=== PATIENT | male | born 1970 | race Hispanic/Latino ===

== ENCOUNTER 2017-11-15 16:27 | Emergency (ER) | payer OTHER ==
[~2017-11-15] VITALS: Ht 167.6 cm; Wt 86.2 kg
--- NOTE | 2017-11-15 17:05 | ED ANIMAL BITE/WOUND CHECK ---
History of Present Illness General Chief Complaint: Animal/Insect Bite Stated Complaint: DOG BITE Source: patient Exam Limitations: no limitations Vital Signs & Intake/Output Vital Signs & Intake/Output Vital Signs Date Time Temp Pulse Resp B/P B/P Pulse O2 O2 Flow FiO2 Mean Ox Delivery Rate 11/15 1628 97.6 140 18 132/78 97 Room Air Allergies Coded Allergies: No Known Allergies (11/15/17) Triage Note: BIBA FROM HOME, S/P DOG BITE "THERE WAS A STRAY PITBULL AND IT WENT AFTER MY DOGS". PT NOTED WITH LACERATIONS/DRESSINGS TO RIGHT INDEX FINGER AND LEFT ELBOW, ALSO NOTED WITH ?PUNCTURE WOUNDS TO RIGHT LOWER ABD, MULTIPLE ABRASIONS/SCRATCHES TO ARMS LEGS, LEFT SHOULDER AREAS. Triage Nurses Notes Reviewed? yes Onset: Abrupt Duration: hour(s): Timing: single episode today Injury Environment: home Is Injury an Animal Bite? Yes Animal Type: dog Context of Animal Attack: unprovoked attack Appearance of Animal: unknown Animal Immunization Status: unknown Observation/Capture: not captured Severity of Attack: bitten, scratched Severity: moderate HPI: 47yo male presents to ED complaining of dog bites from stray pitbull. Patient states that there was a pimple at his front door, his accidentally opened the door and the people ran side. Bupropion affecting the patient's small dog. The patient intervened it and scratched him in several locations including both arms and torso. Patient unsure of last tetanus vaccine. He denies head injury or loss of consciousness. (Sierra Renae) Reconcile Medications Amoxicillin/Potassium Clav (Augmentin 875-125 Tablet) 875 MG-125 MG TABLET 1 TAB PO BID dog bite Tramadol HCl 50 MG TABLET 1 TAB PO Q6P PRN PAIN (Fermin Gross DO) Past History Travel History Traveled to [place] past 21 day No Medical History Any Pertinent Medical History? none Neurological: NONE EENT: NONE Cardiovascular: NONE Respiratory: NONE Gastrointestinal: NONE Hepatic: NONE Renal: NONE Musculoskeletal: NONE Psychiatric: NONE Endocrine: NONE Blood Disorders: NONE Cancer(s): NONE MEDICAL SPECIALIST/Reproductive: NONE Surgical History Surgical History: non-contributory Psychosocial History What is your primary language Vincentian Tobacco Use: Never used ETOH Use: denies use Illicit Drug Use: denies illicit drug use Family History Hx Contributory? No (Sierra Renae) Review of Systems Review of Systems Constitutional: Reports: no symptoms. EENTM: Reports: no symptoms. Respiratory: Reports: no symptoms. Cardiovascular: Reports: no symptoms. GI: Reports: no symptoms. Genitourinary: Reports: no symptoms. Musculoskeletal: Reports: see HPI. Skin: Reports: see HPI. Neurological/Psychological: Reports: no symptoms. Hematologic/Endocrine: Reports: no symptoms. Immunologic/Allergic: Reports: no symptoms. All Other Systems: Reviewed and Negative (Sierra Renae) Physical Exam Physical Exam General Appearance: well developed/nourished, no apparent distress, alert, awake Head: atraumatic, normal appearance Eyes: Bilateral: normal appearance. Ears, Nose, Throat: hearing grossly normal Neck: normal inspection, supple, full range of motion Respiratory: no respiratory distress Back: normal inspection, normal range of motion Extremities: normal range of motion Neurologic/Psych: awake, alert, oriented x 3 Skin: 2 lacerations to right index finger 1.5cm and 1cm, 1cm left posterior elbow laceration abrasions to bilateral arms and hands, right torso (Sierra Renae) Progress Differential Diagnosis: laceration, abrasion, dog bite, rabies exposure Plan of Care: Current Medications Sig/Ramón Start time Last Medication Dose Stop Time Status Admin Ampicillin Sodium/ 3,000 MG ONCE ONE 11/15 1899 UNVr Sulbactam Sodium 11/15 1928 (Unasyn) Sodium Chloride 100 ML (Normal Saline 0.9%) Deep lacerations to right index finger and left elbow were approximated with sutures. All wounds were irrigated extensively with normal saline. Patient placed in finger splint to prevent breaking of stitches to right index finger. He was given rabies vaccines and rabies immunoglobulin. Tetanus status was also updated today. Given deep wounds to right index finger patient given referral to a hand specialist for further evaluation. He is also educated on signs and symptoms of skin infection. Patient given dose of IV Unasyn here in the emergency department. He was started on Augmentin to go home with. Patient will return for rabies schedule and suture removal. He will also return for symptoms of skin infection or tenosynovitis. The patient understands and agrees with plan of care. Diagnostic Imaging: Viewed by Me: Radiology Read. Discussed w/RAD: Radiology Read. Radiology Impression: PATIENT: CUENCA,VITALIY PRESENT AGE: 47 PATIENT ACCOUNT NO: [id number] : 69 LOCATION: [facility] ORDERING PHYSICIAN: Sierra CORRALES SERVICE DATE: 11/15/17 EXAM TYPE: RAD - XRY-ELBOW 3 OR MORE VIEWS, L; XRY-FINGERS, RIGHT; XRY-HAND, LEFT EXAMINATION: XR FINGER, RIGHT XR HAND, LEFT XR ELBOW, LEFT CLINICAL INFORMATION: Status post dog bite. COMPARISON: None. TECHNIQUE: 5 views of the left elbow were obtained. 3 views of the left hand were obtained. Single view of the right hand was performed along with 2 additional views of the 1st digit. FINDINGS: LEFT ELBOW: There is marked disruption of soft tissues posteriorly but no bony abnormality is present. No fractures are seen. No definite joint effusion is seen. LEFT HAND: No bone, joint or soft tissue abnormality is seen. RIGHT FINGERS: There is soft tissue swelling present but no underlying bony abnormality is seen. IMPRESSION: Soft tissue disruption behind the elbow and involving the 1st digit but no underlying bony abnormalities are seen. DICTATED BY: Dimitry Goodman MD DATE/TIME DICTATED:11/15/171757 AUTOMATIC LATHE SETTER: DORI DATE/TIME TRANSCRIBED:11/15/171757 CONFIDENTIAL, DO NOT COPY WITHOUT APPROPRIATE AUTHORIZATION. <Electronically signed in Other Vendor System> SIGNED BY: Dimitry Goodman MD 11/15/17 504 (Emma CORRALES,Sierra Austin) Departure Departure Disposition: HOME OR SELF CARE Condition: Stable Clinical Impression Primary Impression: Dog bite Qualifiers: Encounter type: initial encounter Qualified Code: W54.0XXA - Bitten by dog, initial encounter Secondary Impressions: Laceration Referrals: Sachin Manjarrez APRN (PCP/Family) Additional Instructions: Begin Augmentin as prescribed. Follow-up with hand specialist regarding your dog bites to your fingers. Rinsed the areas daily with soap and water and then Keep areas clean and dry throughout the day. No heavy scrubbing over stitches. Return in 7-10 days for removal of stitches. Return sooner if you develop any signs of infection including redness, swelling, increasing pain, warmth. Please note that there might be incidental findings in your evaluation that are unrelated to the current emergency department visit. Please notify your primary care doctor about this emergency department visit in order to obtain and review all of the testing performed so that these incidental findings can be monitored as needed. If you had an x-ray performed, please understand that some fractures may not be seen on the initial set of x-rays. If your symptoms persist you might need a repeat set of x-rays to check for such a fracture. If you had a laceration evaluated, please understand that foreign bodies such as glass or wood may not be visible to the naked eye or on plain x-rays. If the wound becomes red, swollen, increasingly more painful or if there is any drainage from the wound, please have it reevaluated by a physician for the possibility of a retained foreign body. If you're unable to follow up as outlined in the discharge instructions please return to the emergency department. Thank you for choosing the [facility] Emergency Department for your care. It was a pleasure to serve you today. Departure Forms: Customer Survey General Discharge Information Prescriptions: Current Visit Scripts Amoxicillin/Potassium Clav (Augmentin 875-125 Tablet) 1 TAB PO BID #20 TAB (Sierra Renae) PA/OPTOMETRIC TECHNOLOGIST Co-Sign Statement Statement: ED Attending supervision documentation- [] I saw and evaluated the patient. I have also reviewed all the pertinent lab results and diagnostic results. I agree with the findings and the plan of care as documented in the PA's/OPTOMETRIC TECHNOLOGIST's documentation. [x] I have reviewed the ED Record and agree with the PA's/OPTOMETRIC TECHNOLOGIST's documentation. [] Additions or exceptions (if any) to the PAs/OPTOMETRIC TECHNOLOGIST's note and plan are summarized below: [] (Fermin Gross DO) Procedures Laceration/Wound Repair Laceration/Wound Repair: Wound Location: right index finger, left elbow Wound's Depth, Shape: linear Wound Length (cm): 1.5 Wound Explored: irrigated extensively Irrigated w/ Saline (ccs): 1000 Betadine Prep? Yes Anesthesia: digit block, 1% lidocaine Volume Anesthetic (ccs): 6 Wound Debrided: minimal Wound Repaired With: sutures Suture Size/Type: 4:0, nylon Number of Sutures: 9 Layer Closure? No Sterile Dressing Applied: Yes Splint Applied? Yes By Who? by me Type of Splint Applied: finger Date of Last Tetanus: 11/19/17 Tetanus Status: up to date Progress: 5 stitches placed to 1.5cm right index finger laceration and 2 stitches placed to 1 cm right index finger laceration. This does show placed by PA student with my direct supervision. 2 stitches placed to left elbow laceration by myself. Patient tolerated the procedure well. (Emma CORRALES,Sierra Austin)
--- NOTE | 2017-11-15 18:25 | RADIOLOGY REPORT ---
EXAMINATION: XR FINGER, RIGHT XR HAND, LEFT XR ELBOW, LEFT CLINICAL INFORMATION: Status post dog bite. COMPARISON: None. TECHNIQUE: 5 views of the left elbow were obtained. 3 views of the left hand were obtained. Single view of the right hand was performed along with 2 additional views of the 1st digit. FINDINGS: LEFT ELBOW: There is marked disruption of soft tissues posteriorly but no bony abnormality is present. No fractures are seen. No definite joint effusion is seen. LEFT HAND: No bone, joint or soft tissue abnormality is seen. RIGHT FINGERS: There is soft tissue swelling present but no underlying bony abnormality is seen. IMPRESSION: Soft tissue disruption behind the elbow and involving the 1st digit but no underlying bony abnormalities are seen.
[2017-11-15] MEDS ORDERED: AUGMENTIN 875-1 EACH PO (19:11)
[2017-11-15 21:46] VITALS: BP 140/88
== END 2017-11-15 21:53 ==
LOC: ERH 16:27
DX: S61.250A Open bite of right index finger without damage to nail, initial encounter (principal); S51.052A Open bite, left elbow, initial encounter; W54.0XXA Bitten by dog, initial encounter; Y92.009 Unspecified place in unspecified non-institutional (private) residence as the place of occurrence of the external cause
CPT/HCPCS: 73080-LT; 73130-LT; 73140-RT; 90376; 90471; 90714; 96372; 96374; J2001

== ENCOUNTER 2017-11-21 14:57 | Emergency (ER) | payer OTHER ==
[~2017-11-21] VITALS: Ht 167.6 cm; Wt 92.5 kg
[~2017-11-21 14:57] MED LIST: AUGMENTIN 875-1 EACH PO
[2017-11-21] MEDS ORDERED: TRAMADOL HCL50 M1 PO (15:16)
[2017-11-21 15:17] VITALS: BP 128/83
--- NOTE | 2017-11-21 15:17 | ED ANIMAL BITE/WOUND CHECK ---
History of Present Illness General Chief Complaint: General Adult Stated Complaint: SUTURE REMOVAL; LAST RABIES SHOT Source: patient Exam Limitations: no limitations Vital Signs & Intake/Output Vital Signs & Intake/Output Vital Signs Date Time Temp Pulse Resp B/P B/P Pulse O2 O2 Flow FiO2 Mean Ox Delivery Rate 11/21 1517 98.0 83 16 128/83 98 Room Air Allergies Coded Allergies: No Known Allergies (11/15/17) Reconcile Medications Amoxicillin/Potassium Clav (Augmentin 875-125 Tablet) 875 MG-125 MG TABLET 1 TAB PO BID dog bite Tramadol HCl 50 MG TABLET 1 TAB PO Q6P PRN PAIN Triage Note: HERE FOR SUTURE REMOVED TO R INDEX FINGER AND LAST RABIES SHOT. AWAKE/ALERT WITH EASY WOB. Triage Nurses Notes Reviewed? yes Onset: Abrupt Duration: day(s): (6), better, continues in ED Timing: single episode today Injury Environment: home Is Injury an Animal Bite? Yes Animal Type: dog, unknown animal Context of Animal Attack: animals fighting Appearance of Animal: unknown Animal Immunization Status: unknown Observation/Capture: animal unknown Severity of Attack: bitten No Modifying Factors: none HPI: 47-year-old male with a past medical history presents for suture removal. Patient seen here 6 days ago after a dog bite to his left index finger right elbow and abdomen. He was started on antibiotics the finger and elbow were sutured. Patient has been taking antibiotics as directed. His pain and swelling is gone down. has been no discharge fever or redness. (Kishor Jean-Baptiste) Past History Travel History Traveled to [place] past 21 day No Medical History Any Pertinent Medical History? see below for history Neurological: NONE EENT: NONE Cardiovascular: NONE Respiratory: NONE Gastrointestinal: NONE Hepatic: NONE Renal: NONE Musculoskeletal: NONE Psychiatric: NONE Endocrine: NONE Blood Disorders: NONE Cancer(s): NONE RAMP SERVICE AGENT/Reproductive: NONE Tetanus Vaccine: 11/15/17 Surgical History Surgical History: non-contributory Psychosocial History What is your primary language Cook Islander Tobacco Use: Never used Family History Hx Contributory? No (Kishor Jean-Baptiste) Review of Systems Review of Systems Constitutional: Reports: no symptoms. EENTM: Reports: no symptoms. Respiratory: Reports: no symptoms. Cardiovascular: Reports: no symptoms. GI: Reports: no symptoms. Genitourinary: Reports: no symptoms. Musculoskeletal: Reports: no symptoms. Skin: Reports: see HPI (laceration). Neurological/Psychological: Reports: no symptoms. Hematologic/Endocrine: Reports: no symptoms. Immunologic/Allergic: Reports: no symptoms. All Other Systems: Reviewed and Negative (Kishor Jean-Baptiste) Physical Exam Physical Exam General Appearance: well developed/nourished, no apparent distress, alert, awake Head: atraumatic, normal appearance Eyes: Bilateral: normal appearance, EOMI. Ears, Nose, Throat: hearing grossly normal Neck: normal inspection, supple, full range of motion Respiratory: no respiratory distress Cardiovascular: normal peripheral pulses Peripheral Pulses: 2+ radial (R), 2+ radial (L) Gastrointestinal: there are multiple superficial puncture wounds to the anterior upper abdomen. No erythema and no discharge no swelling Back: normal inspection, normal range of motion Extremities: there are sutured wounds to the right index finger and left elbow. They appear well approximated no erythema or discharge. There is swelling to the right index finger. Neurologic/Psych: no motor/sensory deficits, awake, alert, oriented x 3, normal gait Skin: intact, normal color, warm/dry (Kishor Jean-Baptiste) Progress Differential Diagnosis: abscess, cellulitis, joint infection, tenosysnovitis Plan of Care: Current Medications Sig/Ramón Start time Last Medication Dose Stop Time Status Admin Rabies Vaccine 1 SYR ONCE ONE 11/21 1515 AC (Rabies (Vaccine) 11/21 1516 Inj (1ML)) Patient is here for suture removal. Sutures removed from the elbow laceration that is well approximated. Several sutures removed from the right index finger but it was determined that several more days should be left for healing sutures were left in place. Patient was advised to continue his antibiotics. Keep the area clean and dry Tylenol or ibuprofen for pain. Return in 3 days for suture removal and wound check. Tramadol for pain. Third rabies shot was given. Return in 7 days for final shot. Patient agrees the plan (Kishor Jean-Baptiste) Departure Departure Disposition: HOME OR SELF CARE Condition: Stable Clinical Impression Primary Impression: Visit for suture removal Referrals: Sachin Manjarrez APRN (PCP/Family) Additional Instructions: Continue antibiotics for the full course. TYLENOL/IBUPROFEN for pain tramadol for severe pain. Return in 2 or 3 days for another wound check and suture removal. Return sooner with any concerns. Departure Forms: Customer Survey General Discharge Information Prescriptions: Current Visit Scripts Tramadol HCl 1 TAB PO Q6P PRN PAIN #10 TAB (Kishor Jean-Baptiste) PA/CITY MAINTENANCE MANAGER Co-Sign Statement Statement: ED Attending supervision documentation- [] I saw and evaluated the patient. I have also reviewed all the pertinent lab results and diagnostic results. I agree with the findings and the plan of care as documented in the PA's/CITY MAINTENANCE MANAGER's documentation. [x] I have reviewed the ED Record and agree with the PA's/CITY MAINTENANCE MANAGER's documentation. [] Additions or exceptions (if any) to the PAs/CITY MAINTENANCE MANAGER's note and plan are summarized below: [] (Kodi NOLASCO,[facility])
== END 2017-11-21 15:26 ==
LOC: ERH 14:57
DX: S61.211D Laceration without foreign body of left index finger without damage to nail, subsequent encounter (principal); S51.012D Laceration without foreign body of left elbow, subsequent encounter; Z23 Encounter for immunization
CPT/HCPCS: 90471

== ENCOUNTER 2017-11-27 13:46 | Emergency (ER) | payer OTHER ==
[~2017-11-27 13:46] MED LIST changes: +TRAMADOL HCL50 M1 PO
[2017-11-27 13:55] VITALS: BP 121/78
--- NOTE | 2017-11-27 13:58 | ED ANIMAL BITE/WOUND CHECK ---
History of Present Illness General Chief Complaint: Suture Removal/Wound Recheck Stated Complaint: STITCHES REMOVAL/ LAST RABBIES SHOT PER PT Source: patient Exam Limitations: no limitations Vital Signs & Intake/Output Vital Signs & Intake/Output Vital Signs Date Time Temp Pulse Resp B/P B/P Pulse O2 O2 Flow FiO2 Mean Ox Delivery Rate 11/27 1355 97.9 86 16 121/78 98 Room Air Allergies Coded Allergies: No Known Allergies (11/15/17) Reconcile Medications Amoxicillin/Potassium Clav (Augmentin 875-125 Tablet) 875 MG-125 MG TABLET 1 TAB PO BID dog bite Tramadol HCl 50 MG TABLET 1 TAB PO Q6P PRN PAIN Triage Note: PT TO ED FOR SUTURE REMOVAL OF RIGHT INDEX FINGER AND FINAL RABIES VACCINATION. Triage Nurses Notes Reviewed? yes Onset: Abrupt Duration: day(s): Timing: recent history Injury Environment: home HPI: 47-year-old male comes into the emergency room for suture removal to right thumb as well as last rabies vaccine. He still has some persistent swelling but denies any fever chills redness discharge. Denies any other associated symptoms. Mild throbbing pain still. (Michel Lockhart) Past History Travel History Traveled to [place] past 21 day No Medical History Any Pertinent Medical History? see below for history Neurological: NONE EENT: NONE Cardiovascular: NONE Respiratory: NONE Gastrointestinal: NONE Hepatic: NONE Renal: NONE Musculoskeletal: NONE Psychiatric: NONE Endocrine: NONE Blood Disorders: NONE Cancer(s): NONE BANKING REPRESENTATIVE/Reproductive: NONE Tetanus Vaccine: 11/15/17 Surgical History Surgical History: non-contributory Psychosocial History What is your primary language Portuguese Family History Hx Contributory? No (Michel Lockhart) Review of Systems Review of Systems Constitutional: Reports: no symptoms. EENTM: Reports: no symptoms. Respiratory: Reports: no symptoms. Cardiovascular: Reports: no symptoms. GI: Reports: no symptoms. Genitourinary: Reports: no symptoms. Musculoskeletal: Reports: see HPI. Skin: Reports: see HPI. Neurological/Psychological: Reports: no symptoms. Hematologic/Endocrine: Reports: no symptoms. Immunologic/Allergic: Reports: no symptoms. All Other Systems: Reviewed and Negative (Michel Lockhart) Physical Exam Physical Exam General Appearance: well developed/nourished, mild distress Head: atraumatic Eyes: Bilateral: normal appearance. Ears, Nose, Throat: normal ENT inspection, hearing grossly normal Neck: normal inspection Respiratory: no respiratory distress Back: normal inspection Extremities: sutures to right first finger, no erythema, no discharge, swelling , limited range of motion Neurologic/Psych: awake, alert, oriented x 3, normal mood/affect Skin: intact, normal color, warm/dry (Michel Lockhart) Progress Differential Diagnosis: abscess, cellulitis, joint infection, tenosysnovitis Plan of Care: Current Medications Sig/Ramón Start time Last Medication Dose Stop Time Status Admin Rabies Vaccine 1 SYR ONCE ONE 11/27 1400 UNVr (Rabies (Vaccine) 11/27 1401 Inj (1ML)) (Michel Lockhart) Departure Departure Disposition: HOME OR SELF CARE Condition: Stable Clinical Impression Primary Impression: Visit for suture removal Secondary Impressions: Rabies exposure Referrals: Sachin Manjarrez APRN (PCP/Family) Additional Instructions: Return if any concerns worsening symptoms. Follow-up with plastic surgeon. Please go over all results of today's visit with your primary care doctor. Contact your primary care doctor to let them know you were here in the emergency room. There may be nonspecific findings which may not be related to your visit today here in the emergency room but may require further evaluation and chronic monitoring by your primary care doctor. If you had a laceration today the chance of foreign body always remains. You should follow-up with your primary care doctor for recheck in 3-5 days for a wound check. If you had an x-ray done there is a chance that a fracture could have been missed on initial read and you should follow-up with your primary care doctor for repeat x-rays if symptoms persist. If your blood pressure was elevated here in the emergency room please have rechecked by [facility] primary care doctor within the next 48. If you were prescribed a narcotic here in the emergency room or any type of controlled substances you're not allowed to drive while taking this medication or operate any type of heavy machinery. Narcotics can make you feel lightheaded dizziness nausea and can cause constipation. You may need to peanut picker a stool softener. Thank you for choosing [facility] emergency room. Please return to the emergency room immediately if you have any other concerns worsening of symptoms. Departure Forms: Customer Survey General Discharge Information Comments 11/27/2017 3:07:28 PM Patient clinically looks well. She was removed from right thumb. Some persistent swelling but no erythema discharge or warmth. Patient was told to follow-up with plastic surgeon. Patient was given his last rabies vaccine. He clinically looks well. He had been bitten by PIT bull initially. (Shorty CORRALES,Michel) PA/COTTON BAG SEWER Co-Sign Statement Statement: ED Attending supervision documentation- [] I saw and evaluated the patient. I have also reviewed all the pertinent lab results and diagnostic results. I agree with the findings and the plan of care as documented in the PA's/COTTON BAG SEWER's documentation. [X] I have reviewed the ED Record and agree with the PA's/COTTON BAG SEWER's documentation. [] Additions or exceptions (if any) to the PAs/COTTON BAG SEWER's note and plan are summarized below: [] (Shay Salgado DO
== END 2017-11-27 14:35 ==
LOC: ERH 13:46
DX: Z23 Encounter for immunization (principal); S61.250D Open bite of right index finger without damage to nail, subsequent encounter
CPT/HCPCS: 90471; 99281